=== PATIENT | female | born 1980 | race Caucasian/White ===

== ENCOUNTER 2017-08-14 08:50 | Emergency (ER) | payer BC, SELFPAY ==
[2017-08-14 09:14] VITALS: BP 125/84; PULSE 87; RESP 18; TEMP 37.7; O2SAT 98; BMI 35.0
[2017-08-14 09:25] LABS: UTC Influenza A Antigen Negative (Negative); UTC Influenza B Antigen Negative (Negative)
--- NOTE | 2017-08-14 09:31 | HMH.EDUTC ---
[facility] [place] Clinical Impression: URI (upper respiratory infection) Disposition: Home, Self-Care Condition on Discharge: Good Instructions: Sore Throat, DI for Nasal Congestion Prescriptions: Promethazine/Dextromethorphan [Promethazine-Dm Syrup] 5 ml PO Q4HP PRN #350 ml MDD 30ML/DAY PRN Reason: Cough Fluticasone Propionate [Flonase 50mcg nasal spray 16gm] 2 spr NS DAILY #1 bottle Referrals: Jerardo Diego MD [Primary Care Provider] - Forms: Work/School Release Time of Disposition: :44 Medical Decision Making - Medical Records Medical records reviewed: Yes: I reviewed the patient's medical records. Vital Signs: 08/14/17 09:14 Temperature 99.8 F H Temperature Source Temporal Artery Scan Pulse Rate [Right] 87 Respiratory Rate 18 Blood Pressure [Right Arm] 125/84 Blood Pressure Mean [Right Arm] 97 Blood Pressure Source [Right Arm] Automatic Cuff Blood Pressure Position [Right Arm] Sitting 02 Sat by Pulse Oximetry 98 Oxygen Delivery Method Room Air - Lab Data Lab results reviewed: Yes: I reviewed the patient's lab results. Lab Results 08/14/17 09:06: Influenza Type A Ag Negative, Influenza Type B Ag Negative Orders (Tests/Meds): ED MEDICATIONS Discontinued Medications Generic Name Dose Route Start Last Admin Trade Name Freq PRN Reason Stop Dose Admin Ceftriaxone Sodium 1 gm 08/14/17 09:40 Rocephin 1gm Vial IM 08/14/17 09:41 ONCE ONE Lidocaine HCl 0 ml 08/14/17 09:40 Lidocaine 1% 10ml Mdv IM 08/14/17 09:41 ONCE ONE Methylprednisolone Sodium Succinate 125 mg 08/14/17 09:40 Solu-Medrol 125mg/2ml Vial IM 08/14/17 09:41 ONCE ONE - Yosvany Inquiry Pt receiving controlled substance: No Yosvany was queried for this patient: No [facility] [place] - General Stated complaint: chills body aches sneezing sore throat Mode of Arrival: Ambulatory Source of Information: Patient Limitations: No Limitations Description of Symptoms (Recalled from Triage Doc. by RN): BODY ACHES SORE THROAT HEENT Symptoms (Recalled from RN notes): Yes Resp Symptoms (Recalled from RN notes): No Skin Symptoms (Recalled from RN notes): No MS Symptoms (Recalled from RN notes): No Functional Status (Recalled from RN notes): N - History of Present Illness Provider Complaint: Patient state that she has been having sore throat Sinus pain and pressure along with cough, body aches and chills States that it has continued to get worse over the last few days State that she is not sure if she has had fever or not as she has not checked it State that last night she noticed that she was blowing yellowish brown color from her nose and feeling pressure behind her eyes - Related Data Previous Rx's Medication Instructions Recorded Fluticasone Propionate [Flonase 2 spr NS DAILY #1 bottle 08/14/17 50mcg nasal spray 16gm] Promethazine/Dextromethorphan 5 ml PO Q4HP PRN #350 ml MDD 08/14/17 [Promethazine-Dm Syrup] 30ML/DAY Allergies Allergy/AdvReac Type Severity Reaction Status Date / Time No Known Allergies Allergy Verified 08/14/17 09:17 - Worker's Comp Is this a Worker's Comp case?: No H History I have reviewed the patient's past medical history: Yes - Social History Alcohol Intake: never - Psychiatric History Expresses thoughts of harming self/others: None Suicide Plan Description: No Plan ROS Obtained: Yes All systems reviewed & no additional complaints - Constitutional Constitutional: Reports body ache, Reports chills, Reports fever(s) - ENT Ears, Nose, Mouth, and Throat: Denies difficulty swallowing, Denies otalgia, Reports headache(s), Reports sinus pain, Reports sinus pressure, Reports sore throat - Respiratory Respiratory: Yes cough - Gastrointestinal Gastrointestingal: Denies: abdominal pain, nausea, vomiting Physical Exam - General General appearance: alert, in no apparent distress - Expanded ENT Exam Nose exam: Present: sinus tend
--- NOTE | 2017-08-14 09:34 | ED_ITS ---
[facility] [place] Clinical Impression: URI (upper respiratory infection) Disposition: Home, Self-Care Condition on Discharge: Good Instructions: Sore Throat, DI for Nasal Congestion Prescriptions: Promethazine/Dextromethorphan [Promethazine-Dm Syrup] 5 ml PO Q4HP PRN #350 ml MDD 30ML/DAY PRN Reason: Cough Fluticasone Propionate [Flonase 50mcg nasal spray 16gm] 2 spr NS DAILY #1 bottle Referrals: Jerrado Diego MD [Primary Care Provider] - Forms: Work/School Release Time of Disposition: :44 Medical Decision Making - Medical Records Medical records reviewed: Yes: I reviewed the patient's medical records. Vital Signs: 08/14/17 09:14 Temperature 99.8 F H Temperature Source Temporal Artery Scan Pulse Rate [Right] 87 Respiratory Rate 18 Blood Pressure [Right Arm] 125/84 Blood Pressure Mean [Right Arm] 97 Blood Pressure Source [Right Arm] Automatic Cuff Blood Pressure Position [Right Arm] Sitting 02 Sat by Pulse Oximetry 98 Oxygen Delivery Method Room Air - Lab Data Lab results reviewed: Yes: I reviewed the patient's lab results. Lab Results 08/14/17 09:06: Influenza Type A Ag Negative, Influenza Type B Ag Negative Orders (Tests/Meds): ED MEDICATIONS Discontinued Medications Generic Name Dose Route Start Last Admin Trade Name Freq PRN Reason Stop Dose Admin Ceftriaxone Sodium 1 gm 08/14/17 09:40 Rocephin 1gm Vial IM 08/14/17 09:41 ONCE ONE Lidocaine HCl 0 ml 08/14/17 09:40 Lidocaine 1% 10ml Mdv IM 08/14/17 09:41 ONCE ONE Methylprednisolone Sodium Succinate 125 mg 08/14/17 09:40 Solu-Medrol 125mg/2ml Vial IM 08/14/17 09:41 ONCE ONE - Yosvany Inquiry Pt receiving controlled substance: No Yosvany was queried for this patient: No [facility] [place] HPI - General Stated complaint: chills body aches sneezing sore throat Mode of Arrival: Ambulatory Source of Information: Patient Limitations: No Limitations Description of Symptoms (Recalled from Triage Doc. by RN): BODY ACHES SORE THROAT HEENT Symptoms (Recalled from RN notes): Yes Resp Symptoms (Recalled from RN notes): No Skin Symptoms (Recalled from RN notes): No MS Symptoms (Recalled from RN notes): No Functional Status (Recalled from RN notes): N - History of Present Illness Provider Complaint: Patient state that she has been having sore throat Sinus pain and pressure along with cough, body aches and chills States that it has continued to get worse over the last few days State that she is not sure if she has had fever or not as she has not checked it State that last night she noticed that she was blowing yellowish brown color from her nose and feeling pressure behind her eyes - Related Data Previous Rx's Medication Instructions Recorded Fluticasone Propionate [Flonase 2 spr NS DAILY #1 bottle 08/14/17 50mcg nasal spray 16gm] Promethazine/Dextromethorphan 5 ml PO Q4HP PRN #350 ml MDD 08/14/17 [Promethazine-Dm Syrup] 30ML/DAY Allergies Allergy/AdvReac Type Severity Reaction Status Date / Time No Known Allergies Allergy Verified 08/14/17 09:17 - Worker's Comp Is this a Worker's Comp case?: No [facility] History I have reviewed the patient's past medical history: Yes - Socia
[2017-08-14 09:58] VITALS: BP 132/88; PULSE 70; RESP 18; TEMP 37.1
== END 2017-08-14 10:01 | disposition home or self-care (01) ==
PROVIDERS: Emergency Provider Nurse Practitioner; PCP Internal Medicine Adolescent Medicine
DX: J06.9 Acute upper respiratory infection, unspecified (principal)
CPT/HCPCS: 87804; 96372; 99202

== ENCOUNTER 2020-01-29 13:18 | Outpatient (CLI) | payer BC, SELFPAY | END 2020-01-29 13:47 | disposition home or self-care (01) | PROVIDERS: PCP Internal Medicine Adolescent Medicine; Visit Provider Nurse Practitioner Family | DX: Z02.1 Encounter for pre-employment examination (principal) ==

== ENCOUNTER 2020-10-03 09:00 | Emergency (ER) | payer BC, SELFPAY ==
[2020-10-03 09:10] VITALS: BP 144/72; PULSE 93; RESP 16; TEMP 37.2; O2SAT 98; BMI 32.9
--- NOTE | 2020-10-03 09:14 | ED_ITS ---
[facility] – [place] Disposition Clinical Impression: Dental abscess Disposition: Home, Self-Care Condition on Discharge: Good Instructions: DI for Dental Pain Additional Instructions: Take antibiotics, pain meds as directed. Use dental balls for pain as well. Can also use clove oil. Follow up with dentist. Prescriptions: Amoxicillin [Amoxicillin 875MG Tab] 875 mg PO Q12H #20 tab Transmission Status: Pending to [id number] Naproxen [Naprosyn 500mg tablet] 500 mg PO BID 10 Days #20 tab Transmission Status: Pending to [id number] Referrals: Jerardo Diego MD [Primary Care Provider] - Time of Disposition: 09:21 Medical Decision Making - Yosvany Inquiry Pt receiving controlled substance: No [facility] [place] HPI - General Stated complaint: tooth pain Time Seen by Provider: 10/03/20 09:14 - History of Present Illness Provider Complaint: Abscess left upper gumline since late last night. Has been using Tylenol. Has appt with dentist but not until . Onset (ago): day(s) (1) Location: mouth Relieving factors: none Exacerbating factors: none Associated symptoms: denies other symptoms Treatments prior to arrival: other (Tylenol) - Related Data Previous Rx's Medication Instructions Recorded Fluticasone Propionate [Flonase 2 spr NS DAILY #1 bottle 08/14/17 50mcg nasal spray 16gm] Promethazine/Dextromethorphan 5 ml PO Q4HP PRN #350 ml MDD 08/14/17 [Promethazine-Dm Solution] 30ML/DAY Amoxicillin [Amoxicillin 875MG 875 mg PO Q12H #20 tab 10/03/20 Tab] Naproxen [Naprosyn 500mg tablet] 500 mg PO BID 10 Days #20 tab 10/03/20 Allergies Allergy/AdvReac Type Severity Reaction Status Date / Time No Known Allergies Allergy Verified 08/14/17 09:17 [facility] History - Hepatitis A Screen Attestation statement:: This patient has been screened for Hepatitis A risk factors. I have reviewed the patient's past medical history: Yes - Social History Alcohol Intake: never ROS Obtained: Yes All systems reviewed & no additional complaints - ENT Ears, Nose, Mouth, and Throat: Reports dental pain Physical Exam - General General appearance: alert, in no apparent distress - Head Head exam: normocephalic - Eye Eye exam: Present: PERRL - Expanded ENT Exam Teeth exam: Present: dental caries, fractured tooth #, gingival swelling - Chest Chest inspection: Present: normal inspection, symmetric chest wall rise - Respiratory Respiratory exam: Present: normal lung sounds bilaterally - Cardiovascular Cardiovascular exam: Present: regular rate, normal rhythm - Neurological Exam Neurological exam: Present: alert, oriented X3 - Psychiatric Psychiatric exam: Present: normal affect, normal mood - Skin Skin exam: Present: warm, dry, intact
[2020-10-03 09:29] VITALS: BP 144/72; PULSE 93; RESP 16; TEMP 37.2; O2SAT 98
== END 2020-10-03 09:31 | disposition home or self-care (01) ==
PROVIDERS: Emergency Provider Physician Assistant; PCP Internal Medicine Adolescent Medicine
DX: K04.7 Periapical abscess without sinus (principal); K02.9 Dental caries, unspecified
CPT/HCPCS: 99202; G0463

== ENCOUNTER → 2021-03-31 10:14 | Outpatient (CLI) | payer BC, SELFPAY | PROVIDERS: PCP Internal Medicine Adolescent Medicine; Visit Provider Nurse Practitioner | DX: Z20.822 Contact with and (suspected) exposure to COVID-19 (principal) | CPT/HCPCS: C9803; U0003; U0005 ==

== ENCOUNTER → 2021-05-04 08:46 | Outpatient (CLI) | payer BC, SELFPAY | PROVIDERS: PCP Internal Medicine Adolescent Medicine; Visit Provider Nurse Practitioner | DX: Z20.822 Contact with and (suspected) exposure to COVID-19 (principal) | CPT/HCPCS: C9803; U0003; U0005 ==

== ENCOUNTER → 2021-07-04 11:08 | Outpatient (CLI) | payer BC, SELFPAY | PROVIDERS: Visit Provider Nurse Practitioner | DX: Z20.822 Contact with and (suspected) exposure to COVID-19 (principal) | CPT/HCPCS: C9803; U0003; U0005 ==

== ENCOUNTER 2021-10-31 15:34 | Emergency (ER) | payer BC, SELFPAY ==
[2021-10-31 17:02] VITALS: BP 0/0; PULSE 0; RESP 0; TEMP -17.7; TEMP 0
== END 2021-10-31 17:05 | disposition left against medical advice (07) ==
LOC: UTC 15:40
PROVIDERS: Emergency Provider Nurse Practitioner; PCP Internal Medicine Adolescent Medicine
DX: Z53.21 Procedure and treatment not carried out due to patient leaving prior to being seen by health care provider (principal)

== ENCOUNTER 2024-09-09 15:46 | Outpatient (CLI) | payer OTHER, SELFPAY ==
[2024-09-09 18:18] LABS: Alanine Aminotransferase 33 U/L (12-78); Albumin Level 4.3 g/dl (3.5-5.0); Albumin/Globulin Ratio 1.3 (1.1-1.8); Alkaline Phosphatase 92 U/L (38-126); Anion Gap 15.2 mEq/L (5-15); Aspartate Amino Transferase 29 U/L (14-36); Bilirubin,Total 0.5 mg/dl (0.2-1.3); Blood Urea Nitrogen 7 mg/dl (7-17); Calcium 9.7 mg/dl (8.4-10.2); Carbon Dioxide 26 mmol/L (22.0-30.0); Chloride 102 mmol/L (98-107); Chol/HDL Ratio 4.7 (1-3.5); Cholesterol 211 mg/dl (140-200); Estimated Glomerular Filt Rate 78 ml/min (>60); GFR (African American) 95 ML/MIN (>60); Globulin 3.2 g/dL (1.3-3.2); Glucose 85 mg/dl (74-100); HDL Cholesterol 45 mg/dl (40-60); Magnesium 2.4 mg/dl (1.6-2.3); Potassium 4.2 mmoL/L (3.5-5.1); Sodium 139 mmol/L (136-145); Total Protein,Serum 7.5 g/dl (6.3-8.2); Triglycerides 255 mg/dl (30-150); VLDL Cholesterol 51 mg/dL (0-40)
[2024-09-09 18:29] LABS: Direct LDL Cholesterol 127.42 mg/dL (100-129); T4 (Thyroxine) 8.5 ug/dl (5.53-11.0)
[2024-09-09 18:33] LABS: Free T4 (Free Thyroxine) 1.21 ng/dl (0.78-2.19)
[2024-09-09 18:37] LABS: 25-OH Vitamin D, Total 24.6 ng/mL (30-100)
[2024-09-09 18:42] LABS: Thyroid Stimulating Hormone 0.81 uIU/mL (0.465-4.68)
[2024-09-09 19:56] LABS: Hemoglobin A1C 4.9 % (4.0-6.0)
[2024-09-10 08:13] LABS: Thyroid Peroxidase Antibodies 15 IU/mL (0-34); Triiodothyronine (T3) Free 3.1 pg/mL (2.0-4.4)
[2024-09-10 15:14] LABS: Thyroglobulin Level <1.0 IU/mL (0.0-0.9)
== END 2024-09-09 23:59 | disposition home or self-care (01) ==
LOC: LAB.DROPOF 09-10 13:22
PROVIDERS: PCP Nurse Practitioner Family; Visit Provider Nurse Practitioner Family
DX: E01.0 Iodine-deficiency related diffuse (endemic) goiter (principal); R63.5 Abnormal weight gain; Z68.39 Body mass index [BMI] 39.0-39.9, adult
CPT/HCPCS: 80053; 80061; 82306; 82728; 83036; 83735; 84436; 84439; 84443; 84481; 86376; 86800

== ENCOUNTER 2025-02-26 15:44 | Outpatient (CLI) | payer OTHER, SELFPAY ==
--- NOTE | 2025-02-26 16:00 | MM_ITS ---
PROCEDURE INFORMATION: Exam: MG Bilateral Screening 3D Mammography Exam date and time: 02/26/2025 3:49 PM Age: 45 years old Clinical indication: Screening examination. TECHNIQUE: Imaging protocol: Bilateral Screening tomosynthesis and 2D mammography including computer-aided detection (CAD) when performed. COMPARISON: No relevant prior studies available. FINDINGS: MAMMOGRAPHY: Breast composition: The breasts are heterogeneously dense, which may obscure small masses. Mass: None. Architectural distortion: None. Calcifications: No suspicious calcifications. Asymmetric density: Questionable glandular asymmetry versus dense breast tissue in the superior posterior aspect of the left breast on the MLO projection. Skin thickening: None. Axillary adenopathy: None. IMPRESSION: Patient to be recalled for spot compression views of the left breast in the exaggerated lateral CC and MLO projections, a full 90 degree lateral view, and left breast ultrasound for further evaluation of a left breast asymmetry best appreciated on the MLO projection. ASSESSMENT: BI-RADS Category 0: Incomplete- Need Additional Imaging Evaluation.
== END 2025-02-26 23:59 | disposition home or self-care (01) ==
LOC: RAD 15:45
PROVIDERS: PCP Nurse Practitioner Family; Visit Provider Nurse Practitioner Family
DX: Z12.31 Encounter for screening mammogram for malignant neoplasm of breast (principal); R92.333 Mammographic heterogeneous density, bilateral breasts; R92.8 Other abnormal and inconclusive findings on diagnostic imaging of breast
CPT/HCPCS: 77063; 77067

== ENCOUNTER 2025-03-05 15:27 | Outpatient (CLI) | payer OTHER, SELFPAY ==
--- NOTE | 2025-03-05 15:30 | US_ITS ---
PROCEDURE INFORMATION: Exam: US Left Breast, Complete Exam date and time: 03/05/2025 3:32 PM Age: 45 years old Clinical indication: Callback from screening for left breast asymmetry TECHNIQUE: Imaging protocol: Complete ultrasound of all four quadrants of the left breast and the retroareolar regions, including ultrasound of the axilla when performed. COMPARISON: MG MM DIG SCREENING MAMM BI W/CAD 02/26/2025 3:49 PM FINDINGS: ULTRASOUND: Breast ultrasound findings: The left breast was evaluated with ultrasound. Benign intramammary lymph node at 2 o'clock measuring 1 point 1 x 1.1 cm is incidentally noted. Benign simple cyst measuring 1 cm at 3 o'clock 7 cm from the nipple. No suspicious masses. No abnormal shadowing or distortion. No abnormal lymph nodes in the axilla. IMPRESSION: No sonographic correlate for the questioned asymmetry noted on screening mammogram. Recommend left breast diagnostic mammogram including spot compression views of the left breast in the CC and MLO projections, a full 90 degree lateral view. ASSESSMENT: BI-RADS Category 0: Incomplete- Need Additional Imaging Evaluation.
== END 2025-03-05 23:59 | disposition home or self-care (01) ==
LOC: RAD 15:28
PROVIDERS: PCP Nurse Practitioner Family; Visit Provider Nurse Practitioner Family
DX: N60.02 Solitary cyst of left breast (principal)
CPT/HCPCS: 76641

== ENCOUNTER 2025-04-01 15:12 | Outpatient (CLI) | payer OTHER, SELFPAY ==
--- NOTE | 2025-04-01 15:15 | MM_ITS ---
PROCEDURE INFORMATION: Exam: MG Left Diagnostic Breast Tomosynthesis Exam date and time: 04/01/2025 3:16 PM Age: 45 years old Clinical indication: Patient was called back for a left breast asymmetry. This had no sonographic correlate on 03/05/2025. TECHNIQUE: Imaging protocol: Left Diagnostic tomosynthesis and 2D mammography including computer-aided detection (CAD) when performed. Unilateral or bilateral exam. COMPARISON: MG MM DIG SCREENING MAMM BI W/CAD 02/26/2025 3:49 PM FINDINGS: MAMMOGRAPHY: Breast composition: The breast is heterogeneously dense, which may obscure small masses. Breast mammogram findings: Spot compression views of the superior posterior aspect of the left breast demonstrates no underlying persistent mass, distortion, or other mammogram abnormality. Findings in the left breast are most consistent with dense fibroglandular tissue. IMPRESSION: 1. No mammographic evidence of malignancy. No residual finding is seen on the spot compression views in the left breast. 2. Annual bilateral mammographic screening is recommended unless otherwise clinically indicated. ASSESSMENT: BI-RADS Category 1: Negative.
== END 2025-04-01 23:59 | disposition home or self-care (01) ==
LOC: RAD 15:13
PROVIDERS: PCP Nurse Practitioner Family; Visit Provider Nurse Practitioner Family
DX: R92.332 Mammographic heterogeneous density, left breast
CPT/HCPCS: 77061; 77065; G0279